=== PATIENT | male | born 1995 | race Caucasian/White ===

== ENCOUNTER → 2017-12-03 | Outpatient (REF) ==
--- NOTE | 2017-12-03 14:28 | RADIOLOGY IMAGING REPORT ---
FACILITY: [facility] PATIENT NAME: Keagan Mcnair : 1995 MR: [id number] V: [id number] EXAM DATE: ORDERING PHYSICIAN: CRISTIANO LEWIS TECHNOLOGIST: Location: [facility] [place] Patient: Keagan Mcnair : 1995 Visit/Account:[id number] Date of Sevice: 12/03/2017 CHEST SINGLE AP Indication: Preemployment exam Comparison: None. Findings: Lungs: Clear. Mediastinum/pulmonary vasculature: Heart size and pulmonary vasculature are normal. Bones/soft tissues: Normal. IMPRESSION: Clear lungs. Report Dictated By: Jeremiah Carrizales at 12/03/2017 2:23 PM Report E-Signed By: Jeremiah Carrizales at 12/03/2017 2:23 PM WSN:[id number]
== END ==
LOC: RAD 10:03
PROVIDERS: ATTEND Physician Assistant Medical
DX: Z02.1 Encounter for pre-employment examination (principal)
CPT/HCPCS: 71045